=== PATIENT | male | born 1960 | race Caucasian/White ===

== ENCOUNTER 2017-04-12 09:26 | Inpatient (IN) ==
--- NOTE | 2017-04-12 09:52 | Anesthesia Evaluation PreOp ---
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: CVA (residual left sided weakness) Other Medical History: Hepatic (fatty liver), Bleeding (thrombocytopenia), Diabetes Type II, GERD Anesthesia History: No Prior Anesthetic Complications, Past Anesthesia Alcohol Use: none Drug use: none Medications and Allergies Gabapentin [Neurontin] 300 mg PO Q6H PRN 10/08/15 [History] Hydrochlorothiazide 25 mg PO DAILY 10/08/15 [History] Lisinopril [Zestril] 10 mg PO DAILY 10/08/15 [History] Nadolol [Corgard] 20 mg PO DAILY 10/08/15 [History] Pantoprazole Sodium [Protonix] 40 mg PO DAILY 10/08/15 [History] Ascorbic Acid [Vitamin C] 500 mg PO DAILY 04/06/17 [History] Escitalopram [Lexapro] 10 mg PO DAILY 04/06/17 [History] GlipiZIDE [Glipizide ER] 10 mg PO 04/06/17 [History] Magnesium Chloride [Mag Delay] 64 mg PO BID 04/06/17 [History] Magnesium Hydroxide [Milk of Magnesia] 400 mg PO QID 04/06/17 [History] Multivitamin [Multivitamins] 1 each PO DAILY 04/06/17 [History] Potassium Chloride [K-Tab ER] 20 meq PO DAILY 04/06/17 [History] Spironolactone [Aldactone] 25 mg PO BID 04/06/17 [History] Allergies No Known Allergies Allergy (Verified 09/06/15 10:50) - Meds/Allergy Pre-op Review Medications Reviewed: Yes Allergies Reviewed: Yes Beta Blockers on Current Med List: Yes If Beta Blockers taken, Date/Time (Last Dose taken): 04/11/2017 at 0900 Anesthesia Results - Labs Laboratory Tests 04/04/17 04/04/17 04/04/17 13:14 13:14 13:14 WBC 5.0 Hgb 13.7 Hct 42.7 Plt Count 62 L PT 12.4 H INR 1.1 APTT 30.5 Sodium 138 Potassium 4.1 BUN 11 Creatinine 0.78 - Imaging EKG: report reviewed (04/04/2017 SR, possible LAE, ST deviation) Additional studies: 10/27/2015 Stress LVEF>70% perfusion imaging was negative for ischemia or infarct 10/08/2015 Echo LVEF 60-65% mild LV diastolic dysfunction mild MR Anesthesia Exam O2 Sat Height 1.74 m Height 1.74 m Weight 108.409 kg Weight 108.409 kg O2 Sat by Pulse Oximetry 96 Vital Signs Temp Pulse Resp BP Pulse Ox 98.0 F 87 18 129/74 96 04/12/17 09:47 04/12/17 09:47 04/12/17 09:47 04/12/17 09:47 04/12/17 09:47 Height: 5'8.5" Weight: 239 lbs NPO (# of Hours): 8 Pain Scale: 0 Pain Scale Used: Numeric (1 - 10) - HEENT Pupil (Motor): EOMI Mallampati: II Teeth: Edentulous Oral Opening: Greater than 3 - MILL WASHER LOC: Oriented MILL WASHER Motor: Normal RLE, Normal LLE, Normal Face, Deficit RUE, Deficit LUE MILL WASHER Sensory: Normal: RUE, LUE, RLE, LLE, Face - Cardiac Rhythm: Regular Murmur: None - Pulmonary Breath Sounds: bilateral Clear Respiratory Effort: Symmetrical Anesthesia Assess/Plan ASA Score: 3 Modified Joshua Scale for Level of Consciousness: Cooperative, oriented, and tranquil Anesthetic Plan: General Monitoring Plan: Standard Monitors, A-Line Recovery Plan: PACU
[2017-04-12] MEDS ORDERED: CeFAZolin Pre 2,000 MG/100 ML 2,000 MG/100 ML BAG IVPB ONE (09:54)
[2017-04-12] MEDS ORDERED: Lidocaine -MPF 1% 2 ML VIAL ID ONE (09:54)
[2017-04-12] MEDS ORDERED: Ringers Solution, Lactated 1,000 ML IVC SCH (10:00)
[2017-04-12] MEDS: Albuterol 2.5 MG/3 ML NEBULIZER IH ONE ×2 (10:16→19:30)
[2017-04-12 10:45] LABS: Hemoglobin A1C 8.7 %
--- NOTE | 2017-04-12 11:42 | History & Physical Report ---
Date of Encounter: 04/12/17 Time of Encounter: 11:42 24 Hour HP Update - Instructions Instructions: If the History and Physical is less than 30 days old and was completed prior to A.M. admission and or procedure and has NOT been updated on calendar day of procedure please complete this update prior to performing procedure. - Update Patient reports changes in Medical Condition: No Changes in examination, assessment, or condition: No Changes in Medication: No Preop tests/diagnostics Reviewed: Yes Surgery Remains Indicated: Yes Consent for Planned Operative Procedure(s) Verified: Yes - Pre-Operative Checklist Preoperative Checklist Indicated: Yes Prophylactic Antibiotic Ordered: Yes Home Medications Include Beta Topher: Yes Beta Topher Taken Today (Day of Surgery): Yes Beta Topher Taken Yesterday (Day Prior to Surgery): Yes Is VTE Prophylaxis Indicated?: Yes
[2017-04-12] MEDS ORDERED: Heparin 1,000 UNITS/500 mL NS 500 ML ONE ×3 (11:49→12:42)
[2017-04-12] MEDS ORDERED: Lidocaine 1% 20 ML MDV ONE (12:42)
[2017-04-12] MEDS ORDERED: EPHEDrine 50 MG/ML VIAL ONE (12:46)
--- NOTE | 2017-04-12 12:58 | Anesthesia Procedures ---
Date of Encounter: 04/12/17 Time of Encounter: 12:13 Procedures: Anesthesia - Arterial Line Consent obtained: written consent Time out performed: Yes Sedation: Versed (mg): 2 Local Anesthetic: Lidocaine 1% Amount of Anesthetic used (mls): 2 Size (Gauge): 20 Length (inches): 1 3/4 Technique Used: sterile prep, direct puncture technique Post-Procedure: line taped into place, dry sterile dressing placed Patient tolerated procedure: well, no complications Complications: none Site: Radial L Vitals: vss though out. Comments: attempted right side, but would not thread easy.
[2017-04-12] MEDS ORDERED: Ondansetron 4 MG/2 ML VIAL IVP ONE (14:04)
[2017-04-12] MEDS ORDERED: *HR* Labetalol 20 MG/4 ML SYRINGE IVP PRN (14:04)
[2017-04-12] MEDS ORDERED: *HR* Morphine 2 MG/ML SYRINGE IVP PRN ×3 (14:04→17:11)
[2017-04-12] MEDS ORDERED: *HR* FentaNYL (PF) 100 MCG/2 ML VIAL ONE (14:32)
--- NOTE | 2017-04-12 15:37 | Operative Note ---
Date of procedure: 04/12/17 Pre-op diagnosis: left carotid stenosis and cva Post-op diagnosis: same Procedure: left carotid endarterectomy with 8 FR shunt and patch angioplasty Complications: none Anesthesia: GETA Surgeon: Ronnell Rahman Estimated blood loss (cc): 150 Specimen: none Condition: stable Disposition: PACU Procedure in Detail: History Ankush Hein is a 56-year-old white male with a history of stroke 30 has multiple vascular risk factors in particular hypertension and diabetes. Duplex scan did reveal a high-grade lesion of his left carotid artery. Angiography confirmed this lesion and demonstrated not only an internal carotid artery stenosis that was greater than 95% stenotic but also an ulcerated and long stenotic lesion in the distal aspect of the common carotid artery. This appeared to be a typical embolic ulcer and the patient needed treatment for both of these lesions. Procedure After informed consent was obtained the patient was taken to the operating room. Arterial line was placed. General endotracheal anesthesia was established. The left neck was then sterilely prepped and draped. An oblique incision was made on the Anterior border of sternocleidomastoid muscle. Dissection was carried down to the carotid sheath which was then opened. The nervous structures were identified and preserved. Controls obtained of the carotid vessels. A particular amount of attention was paid to the very proximal aspect of the carotid artery in the neck as the arteriotomy would need to be extended approximately 2 remove the atheroembolic stenosis in ulcerated areas. After this was achieved patient was given 5000 units heparin. After 3 minutes later the vessels were clamped with the internal carotid artery clamped first. An 11 blade knife and Infatne scissors were used to open the vessel. An 8 English was then inserted atraumatically and patency the shunt was confirmed by the use of intraoperative Doppler. Evaluation of the plaque revealed a very thick dense plaque in the common carotid artery with 2 distinct areas of ulceration. This corresponded to the angiographic findings. In the proximal internal carotid artery there was a very diffuse and heterogeneous disease with significant amount of loose material within the wall plaque. There are no findings of thrombus within the lumen. The endarterectomy was begun at the distal aspect of the common carotid artery. The dissection was carried proximally and distally. This parathyroid and external carotid artery were endarterectomized as well as the internal. The endpoint on the internal was smooth and no tacking sutures were necessary. On the proximal aspect of the plaque was divided proximal to the more proximal ulcerated area. The bed of the vessels then inspected for any residual debris. A patch angioplasty was performed. This was sewn in position using 2 6-0 Prolene sutures. Leaving a small space open on the suture line the shunt was clamped divided and removed. The final few sutures were placed. The internal was allowed to backbleed and then was reclamped. The external and common were opened and finally the internal was reopened. There is no hip no hemodynamic distress with this maneuver. Excellent Doppler signals were identified throughout the carotid system. A superficial cervical block using half percent Marcaine was performed. The wound was copiously irrigated with antibiotics. Hemostasis was achieved. The wound was closed in layers using absorbable suture. No drains were placed. The patient was extubated in the operating room and found to be neurologically intact. He was taken from the operating room to the recovery room in stable condition.
[2017-04-12] MEDS: *HR* Metoprolol 5 MG/5 ML VIAL IVP PRN ×2 (16:10→16:20)
[2017-04-12] MEDS ORDERED: *HR* Metoprolol 5 MG/5 ML VIAL IVP ONE (16:11)
--- NOTE | 2017-04-12 16:31 | Anesthesia Evaluation Post Op ---
Date of Encounter: 04/12/17 Time of Encounter: 16:30 - Vital Signs Vital Signs: Vital Signs/O2 Sat, Most Current Temp Pulse Resp BP Pulse Ox 97.1 F L 89 16 132/74 96 04/12/17 16:17 04/12/17 16:17 04/12/17 16:17 04/12/17 16:17 04/12/17 16:17 - Lungs Lungs: Clear Ascult./Percussion - Airway Airway: Non-obstructed - Cardiovascular Regular Rate - Mental Status Mental Status: Alert & Oriented, Answers Appropriately - Pain Pain Scale: 0 Pain Scale used: Numeric (1 - 10) - Nausea Vomiting Nausea Vomiting: Not Present - Hydration Hydration: Ice chips, Hamilton catheter - Discharge PostOp Status: Transfer Patient to floor
[2017-04-12] MEDS ORDERED: Ondansetron 4 MG/2 ML VIAL IVP PRN (17:11)
[2017-04-12] MEDS ORDERED: Acetaminophen 325 MG TABLET PO PRN (17:11)
[2017-04-12] MEDS ORDERED: Naloxone 0.4 MG/ML INJ IVP PRN (17:11)
[2017-04-12] MEDS: Gabapentin 300 MG CAPSULE PO SCH ×2 (17:41→20:59)
[2017-04-12] MEDS: *HR* HYDROcodone/Acet 5/325 mg TABLET PO PRN (17:41)
[2017-04-12] MEDS: ceFAZolin 2,000 MG in D5% in Water 100 ML IVPB SCH (19:51)
[2017-04-12] MEDS: *HR* Metformin 500 MG TABLET PO SCH (20:59)
[2017-04-12] MEDS: MOM Conc 10 ML UD.LIQ PO SCH (20:59)
[2017-04-13] MEDS: *HR* HYDROcodone/Acet 5/325 mg TABLET PO PRN ×2 (04:21→09:56)
[2017-04-13] MEDS: ceFAZolin 2,000 MG in D5% in Water 100 ML IVPB SCH ×2 (04:26→11:54)
[2017-04-13 04:28] LABS: Basophils % 0.2 %; Eosinophils % 0.4 %; Immature Granulocytes % 0.4 % (0-4); Lymphocytes % 14.9 %
[2017-04-13 04:30] LABS: Hematocrit 37.4 % (37.5-50.1); Hemoglobin 12.1 g/dL (12.9-16.9); Immature Platelets 11.5 % (1.1-6.1); Lymphocytes # 0.9 K/mcL (0.6-4.6); Mean Corpuscular HGB Conc 32.4 g/dL (31.6-35.5); Mean Corpuscular Hemoglobin 29.2 pg (28.0-33.3); Mean Corpuscular Volume 90.1 fL (83.0-100.0); Mean Platelet Volume 12.4 fL (9.4-12.4); Monocytes # 0.5 K/mcL (0.0-1.3); Monocytes % 7.9 %; Red Blood Count 4.15 M/mcL (4.19-5.50); Red Cell Distribution Width 14.1 % (11.5-14.5); Segmented Neutrophils % 76.2 %
[2017-04-13 04:31] LABS: Neutrophils # 4.3 K/mcL (1.6-8.9); Platelet Count 63 K/mcL (140-400)
[2017-04-13 04:40] LABS: BUN/Creatinine Ratio 16 (6-26); Blood Urea Nitrogen 12 mg/dL (8-26); Calcium 8.5 mg/dL (8.6-10.8); Carbon Dioxide 27 mEq/L (19-29); Chloride 103 mEq/L (98-109); Glucose 213 mg/dL (70-99); Osmolality,Calculated 284 (280-300); Potassium 4.9 mEq/L (3.5-4.5); Sodium 134 mEq/L (136-145); eGFR For African Americans > 60 (> 60); eGFR For Non-African Americans > 60 (> 60)
[2017-04-13] MEDS: *HR* Metformin 500 MG TABLET PO SCH (07:41)
[2017-04-13] MEDS: Gabapentin 300 MG CAPSULE PO SCH ×2 (07:41→11:54)
[2017-04-13] MEDS: MOM Conc 10 ML UD.LIQ PO SCH (07:42)
[2017-04-13] MEDS ORDERED: Ascorbic Acid 500 MG TABLET PO SCH (09:00)
[2017-04-13] MEDS ORDERED: MAGNESIUM CHLORIDE 64 MG PO SCH (09:00)
[2017-04-13] MEDS ORDERED: hydroCHLOROthiazide 25 MG TABLET PO SCH (09:00)
[2017-04-13] MEDS ORDERED: Multivit/Ca/Min/Fe/FA 1 TAB TABLET PO SCH (09:00)
[2017-04-13] MEDS ORDERED: *HR* GlipiZIDE XL (24 HR) 10 MG TABLET PO SCH (09:00)
[2017-04-13 11:40] VITALS: BP 129/77
--- NOTE | 2017-04-13 14:22 | Discharge Summary ---
Date of Encounter: 04/13/17 Time of Encounter: 14:19 - Discharge Diagnosis (1) Carotid artery disease Priority: Primary Status: Acute Comments: 56-year-old white male with symptomatic carotid disease. Patient has abnormal duplex scan. He had a carotid artery angiogram which showed a high-grade lesion of greater than 95% and an ulcerated lesion with stenosis in the distal left common carotid artery. Patient was admitted for left carotid endarterectomy. Qualifiers: Laterality: left Qualified Code(s): I77.9 - Disorder of arteries and arterioles, unspecified (2) Diabetes mellitus Priority: Secondary Status: Chronic Comments: Patient has chronic diabetes which is under medical management. Qualifiers: Diabetes mellitus type: type 2 Diabetes mellitus complication status: with circulatory complication Diabetes mellitus complication detail: with peripheral angiopathy without gangrene Diabetes mellitus alf insulin use : with alf use Qualified Code(s): E11.51 - Type 2 diabetes mellitus with diabetic peripheral angiopathy without gangrene; Z79.4 - [facility] (current ) use of insulin (3) Hypertension Priority: Secondary Status: Chronic Comments: Patient has chronic hypertension under medical management Qualifiers: Hypertension type: essential hypertension Qualified Code(s): I10 - Essential (primary) hypertension (4) Hyperlipidemia Priority: Secondary Status: Chronic Comments: Patient has chronic hyper cholesterolemia under medical management Qualifiers: Hyperlipidemia type: unspecified Qualified Code(s): E78.5 - Hyperlipidemia , unspecified - Discharge Medications Prescriptions: HYDROcodone/Acet 5/325 mg [Bellwood 5-325 mg] 1 tab PO Q6HR PRN #10 tablet PRN Reason: Moderate Pain Home Medications: Gabapentin [Neurontin] 300 mg PO QID 10/08/15 [History] Hydrochlorothiazide 25 mg PO DAILY 10/08/15 [History] Lisinopril [Zestril] 10 mg PO DAILY 10/08/15 [History] Nadolol [Corgard] 20 mg PO DAILY 10/08/15 [History] Pantoprazole Sodium [Protonix] 40 mg PO DAILY 10/08/15 [History] Ascorbic Acid [Vitamin C] 500 mg PO DAILY 04/06/17 [History] Escitalopram [Lexapro] 10 mg PO DAILY 04/06/17 [History] Magnesium Chloride [Mag Delay] 64 mg PO DAILY 04/06/17 [History] Multivitamin [Multivitamins] 1 each PO DAILY 04/06/17 [History] Potassium Chloride [K-Tab ER] 20 meq PO DAILY 04/06/17 [History] Spironolactone [Aldactone] 25 mg PO BID 04/06/17 [History] Magnesium Hydroxide [Milk of Magnesia] 5 ml PO BID 04/12/17 [History] Metformin HCl [Glucophage] 1,000 mg PO BID 04/12/17 [History] glipiZIDE [Glipizide] 10 mg PO DAILY 04/12/17 [History] HYDROcodone/Acet 5/325 mg [Bellwood 5-325 mg] 1 tab PO Q6HR PRN #10 tablet [Rx] Allergies/Adverse Reactions: Allergies No Known Allergies Allergy (Verified 09/06/15 10:50) Date of admission: 04/12/17 17:10 Primary care physician: Jennifer Gregory Consults: None Procedure(s) Performed: Left carotid endarterectomy with patch angioplasty Discharging clinician: Ronnell Rahman Anticipated date of discharge: 04/13/17 - Patient Status Disposition: Home, Self-Care Condition: Good Functional capacity at discharge: independent ambulation Overall status at discharge: patient is progressing back to baseline - Discharge Instructions Follow Up With: Andreia Plaza CNP [Advanced Practice Nurse] - 04/18/17 10:00 am Ronnell Rahman MD [Partnered Physician] - 05/02/17 1:30 pm Additional Instructions: Patient is to keep her left neck incision dry for a total of 5 days following surgery. Patient is to use ice pack over left neck over this weekend. Patient is not to drive and vehicle. Patient is not to lift greater than 10 pounds. Patient is not to perform manual labor. Patient may ambulate inside and outside and on the stairway's as tolerated. Patient is to resume usual home medications. A prescription for Bellwood will be given to the patient upon discharge. - Diet and Activity Activity: increase activity as tolerated Diet: diabetic diet - Hospital Course Hospital course: Mr. Hein is a 56 year old male With symptomatic carotid artery disease. He has multiple risk factors for vascular disease. He was admitted for a left carotid endarterectomy. This was performed under general endotracheal anesthesia. The patient had no periprocedural complications. Postoperatively he was doing well. He was able to ambulate. He was hemodynamically stable. He was felt fit for discharge on the afternoon of postoperative day #1. His diet and exercise medications and wound care were reviewed with the patient prior to discharge. - Time Spent with Patient Total time spent providing and/or coordinating discharge services: Exam Vital Signs, Last 4 Hours Temp Pulse Resp BP Pulse Ox 04/13/17 11:37 97.6 F 81 18 129/77 95 04/13/17 11:04 73 General: Present: Conversant, No Apparent Distress, Well developed, Well nourished HEENT: Present: Atraumatic, Normocephaly, Trachea midline Neck: Absent: JVD Neuro: Present: Alert and responsive, No focal deficits noted, Cranial nerves grossly intact, Motor nerves grossly intact, Sensory nerves grossly intact Abdomen: Present: Soft Vascular: Present: Normal capillary refill Skin: Present: No rashes noted on visualized skin - VTE Documentation of Mechanical Device: Intermittent pneumatic compression device
== END 2017-04-13 16:07 | disposition home or self-care (01) | DRG 39 ==
LOC: SAMDAY 09:26 → 2NNU 17:10
PROVIDERS: ADMIT Surgery Vascular Surgery; ATTEND Surgery Vascular Surgery

== ENCOUNTER 2018-09-14 03:29 | Inpatient (IN) ==
[2018-09-14] MEDS ORDERED: Naloxone 0.4 MG/ML INJ IVP PRN (08:45)
[2018-09-14] MEDS ORDERED: *HR* OxyCODONE Immed Rel 5 MG TABLET PO PRN (08:45)
[2018-09-14] MEDS ORDERED: *HR* HYDROcodone/Acet 5/325 mg TABLET PO PRN (08:45)
[2018-09-14] MEDS ORDERED: Acetaminophen 325 MG TABLET PO PRN (08:45)
--- NOTE | 2018-09-14 08:54 | Internal Med History&Physical ---
Date of Encounter: 09/14/18 Time of Encounter: 08:52 Internal Medicine - H&P: HPI Chief complaint: I have been spittin up blood Admitted From: Hospital to Hospital Transfer Plans for Post Hospital Care: Home History of present illness: Mr. Hein is a 58 year old male with medical history of carotid artery disease, tobacco abuse, hyperlipidemia, hypertension, liver cirrhosis with history of esophageal varices status post banding, chronic thrombocytopenia, presented to outside facility with complaints of cough productive of sputum with blood streaks. Patient reports that he has been coughing for several months however in the past hours prior to arrival he has been coughing up more blood with phlegm. He has not had any since arrival here at [facility], but he reports he had about a teaspoon per event at home. No blood clots, and he describes the blood as mixed with phlegm. He denies fever or chills, he reports generalized malaise. He denies any vomiting or nausea. He states categorically that he is not vomiting blood. He has no diaphoresis, recent sick contacts, unintentional weight loss, recent incarceration, recent travel. he has pleuritic chest pain and abdominal pain with cough He denies rhinorrhea, he also reports a sore throat since onset of his symptoms. He denies myalgias, he denies any urinary symptoms, he denies any neurologic symptoms. He has no leg swelling. He is a chronic tobacco user, he denies illicit drug use. He is allergic to lisinopril and penicillins Results from outside facility Urinalysis: No evidence of infection Liver function tests: Within normal limits CRP: 2.13 INR: 1.2 Lactate: 2.1 to Troponin: 0.03 White blood cell 5.8 Hemoglobin: 11.7 Platelet count: 67 Sodium: 128, chloride: 96, serum bicarbonate: 27, BUN/creatinine within normal limits EKG shows sinus tachycardia with ventricular rate of [address] interpreted as tree-in-bud appearance suspicious for inflammatory versus infectious processes, no pulmonary embolism. At time of review, he is hemodynamically stable and in no form of resp distress We will place him on observation for PNA and hemoptysis. Past Med Surg Social Fam HX - Past Medical History Medical history: arthritis, CVA, DVT, diabetes, GERD, hyperlipidemia, hypertension, liver disease, TIA Additional medical history: CAROTID STENOSIS. SLEEP APNEA Psychiatric history: anxiety - Past Surgical History Surgical History: appendectomy, cholecystectomy Additional surgical history: heart cath. BILAT HIP - Social History Smoking Status: Former smoker Smokeless Tobacco Status: No Alcohol use: none Drug use: none - Family History Sister Hx Family Cardiac Disorders: Yes (CHF) Paternal Grandfather Living Status: Hx Family Cancer: Yes (lung) Father Living Status: Cause of : stroke Hx Family Neurologic Disorders: Yes (stroke) Mother Living Status: Cause of : [place] Hx Family Cardiac Disorders: Yes ([place]) Internal Medicine - H&P: Meds Gabapentin [Neurontin] 300 mg PO QID 10/08/15 [History] Hydrochlorothiazide 25 mg PO DAILY 10/08/15 [History] Nadolol [Corgard] 20 mg PO DAILY 10/08/15 [History] Pantoprazole Sodium [Protonix] 40 mg PO DAILY 10/08/15 [History] Magnesium Chloride [Mag Delay] 64 mg PO DAILY 04/06/17 [History] Multivitamin [Multivitamins] 1 each PO DAILY 04/06/17 [History] Potassium Chloride [K-Tab ER] 20 meq PO DAILY 04/06/17 [History] Spironolactone [Aldactone] 25 mg PO BID 04/06/17 [History] Metformin HCl [Glucophage] 1,000 mg PO BID 04/12/17 [History] glipiZIDE [Glipizide] 10 mg PO DAILY 04/12/17 [History] Aspirin [Lo-Dose Aspirin EC] 81 mg PO DAILY 11/04/17 [History] Canagliflozin [Invokana] 100 mg PO DAILY 11/04/17 [History] Pioglitazone [Actos] 15 mg PO 0800 11/04/17 [History] Venlafaxine HCl [Venlafaxine HCl ER] 150 mg PO DAILY 11/04/17 [History] hydrOXYzine HCl [Hydroxyzine HCl] 25 mg PO HS 11/04/17 [History] hydroCHLOROthiazide [Hydrochlorothiazide] 25 mg PO DAILY 11/04/17 [History] Allergy/AdvReac Type Severity Reaction Status Date / Time Penicillins Allergy Hives Verified 11/16/17 17:12 All Systems PM: A 10-system review of systems was performed and is negative for pertinent findings except as documented above in the HPI. - Constitutional Constitutional: as per HPI - EENT Eyes: as per HPI Ears: as per HPI Nose, mouth and throat: as per HPI - Cardiovascular Cardiovascular ROS IM: as per HPI - Respiratory Respiratory: as per HPI - Gastrointestinal Gastrointestinal: as per HPI - Musculoskeletal Musculoskeletal ROS IM: as per HPI - Integumentary Integumentary IM: as per HPI - Neurological Neurological ROS: as per HPI - Hematologic/Lymphatic Hematologic/Lymphatic: as per HPI - Constitutional Vitals: Temp Pulse Resp BP Pulse Ox 98.2 F 85 16 130/82 99 09/14/18 07:58 09/14/18 07:58 09/14/18 07:58 09/14/18 07:58 09/14/18 07:58 General appearance: Present: A&O X 3, pleasant, no acute distress Exam: see below - Head Head exam: Present: atraumatic, normocephalic - Eye Eye exam: Present: PERRL, conjuntiva pink, sclera anicteric Pupils: Present: PERRL - Neck Neck exam general surgery: Present: supple, trachea midline. Absent: lymphadenopathy Additional comments: Hyperemic pharynx, no tonsilar enlargements of exudates - Respiratory Respiratory exam: Present: decreased breath sounds (diminished air entry bilaterally). Absent: accessory muscle use, rales, rhonchi, wheezes - Cardiovascular Cardiovascular exam: Present: RRR, +S1, +S2. Absent: diastolic murmur, gallop, rubs, systolic murmur - GI/Abdominal GI/Abdominal exam: Present: normal bowel sounds, soft, no peritoneal signs. Absent: distended, tenderness - Extremities Exam Extremities exam: Present: warm, radial pulses palpable and symmetrical. Absent: calf tenderness, cyanotic, pedal edema - Neurological Exam Neurological exam: Present: alert, CN II-XII intact, oriented X3, no focal deficits. Absent: pronater drift, facial droop, speech deficit - Skin Skin exam: Present: dry, intact - Assessment and plan (1) Pneumonia Current Visit: Yes Status: Acute Assessment and plan: Patient wit coughm subjective fevers CXR and Chest CT from outside facility noted for pNA, no PE Received Levaquin at 0400 from outside facility this a.m Continue with levaquin 750 mg IV daily No recent hospitalization, no risk for mRSA or Pseudomonas Send Sputum culture, blood culture, Legionella and streptococcal antigen Continue oxygen support as needed Follow final cultures Qualifiers: Pneumonia type: due to unspecified organism Laterality: unspecified laterality Lung location: unspecified part of lung Qualified Code(s): J18.9 - Pneumonia, unspecified organism (2) Hemoptysis Current Visit: Yes Status: Acute Assessment and plan: Likely due to pneumonia High-risk patient due to history of thrombocytopenia Currently no airway compromise, patient is not in distress Consulted pulmonology, Dr. Bishop will be evaluating the patient Type and screen, repeat CBC stat Hold home dose of aspirin until stable (3) Cirrhosis Current Visit: Yes Status: Chronic Assessment and plan: No evidence of current ascites Resume home medications Qualifiers: Hepatic cirrhosis type: unspecified hepatic cirrhosis Ascites presence: without ascites Qualified Code(s): K74.60 - Unspecified cirrhosis of liver (4) Thrombocytopenia Current Visit: Yes Status: Chronic Assessment and plan: Baseline platelet count ranges from 70-90 Platelet count from outside facility 67 Follow CBC Type and screen No current indication for platelet transfusion SCDs for DVT prophylaxis (5) History of esophageal varices Current Visit: Yes Status: Chronic Assessment and plan: Denies vomiting or hematemesis Continue nadolol, continue PPI, continue to monitor (6) Carotid artery disease Current Visit: Yes Status: Chronic Assessment and plan: Continue home medications except aspirin Qualifiers: Carotid artery disease type: unspecified Laterality: unspecified laterality Qualified Code(s): I77.9 - Disorder of arteries and arterioles, unspecified (7) Diabetes mellitus Current Visit: Yes Status: Chronic Assessment and plan: Basal, sliding scale and nutrition and insulin ADA diet Fingerstick before meals at bedtime Qualifiers: Diabetes mellitus type: type 2 Diabetes mellitus group home insulin use: wit hout group home use Diabetes mellitus complication status: without complication Qualified Code(s): E11.9 - Type 2 diabetes mellitus without complications (8) Hyperlipidemia Current Visit: Yes Status: Chronic Assessment and plan: Continue home medications Qualifiers: Hyperlipidemia type: unspecified Qualified Code(s): E78.5 - Hyperlipidemia, unspecified (9) Hypertension Current Visit: Yes Status: Chronic Assessment and plan: Continue home medications Qualifiers: Hypertension type: essential hypertension Qualified Code(s): I10 - Essential (primary) hypertension (10) INDY (obstructive sleep apnea) Current Visit: Yes Status: Chronic Assessment and plan: CPAP at bedtime (11) Tobacco abuse Current Visit: Yes Status: Chronic Assessment and plan: encourage cessation - Time Spent With Patient Total time spent is greater than 50% in coordination of care (as documented) at patient's floor/unit and/or counseling patient:
[2018-09-14] MEDS ORDERED: *HR* Dextrose 50 % in Water (Syg) 50 ML SYRINGE IVP PRN (08:57)
[2018-09-14] MEDS ORDERED: D5% in Water 1,000 ML IVC PRN (08:57)
[2018-09-14] MEDS ORDERED: Dextrose Gel 15 GM/37.5 ML TUBE PO PRN ×2 (08:57)
--- NOTE | 2018-09-14 09:44 | Pulmonology Consult Note ---
Date of Encounter: 09/14/18 Time of Encounter: 08:55 Assessment and Plan (1) Hemoptysis Current Visit: Yes Status: Acute Patient describes mild hemoptysis which has resolved and this is most likely related to possibly community-acquired pneumonia/COPD exacerbation and I was not able to review images from outside hospital, however report stated there is no evidence of pulmonary embolism and some changes suggestive of infectious/inflammatory changes. I have explained to patient he may need bronchoscopy if he still have hemoptysis and she understand that. Patient also has thrombocytopenia which is a contributing factor and he has underlying liver disease. Treating his pneumonia and COPD exacerbation is recommended. Discussed with primary team and thank you for consultation. (2) COPD exacerbation Current Visit: Yes Status: Suspected We will have patient on systemic steroid and bronchodilators. If there will be significant abnormalities in his blood sugar then systemic steroids can be tapered quickly. (3) Pneumonia Current Visit: Yes Status: Acute I suspect this is the cause for his hemoptysis and patient is being treated appropriately with broad-spectrum antibiotic. Again if no improvement then we will plan for bronchoscopy. Qualifiers: Pneumonia type: due to unspecified organism Laterality: unspecified laterality Lung location: unspecified part of lung Qualified Code(s): J18.9 - Pneumonia, unspecified organism (4) Tobacco abuse Current Visit: Yes Status: Chronic Advised patient to quit smoking (5) Tobacco abuse counseling Current Visit: Yes Status: Chronic History of Present Illness Consult date: 09/14/18 Requesting physician: Bereket Mane Reason for consult: other (Hemoptysis) Chief complaint: Hemoptysis History of present illness: This is a 58-year-old male with significant smoking history who presented from outside hospital with hemoptysis and he described it as about a teaspoon fresh blood which happened when he was coughing and since he did not have any more blood. He denies any nosebleed, however he has history of esophageal varices and he is clearly saying he is not vomiting but coughing and CT chest was reported to have tree-in-bud appearance. Patient stated he quit smoking when he started coughing and he denies any previous hemoptysis. He has been treated for COPD and he stated he was on Advair but he is not on home oxygen. Patient denies any fever or chills and he does not have any sick contact and denies any previous history of TB. Patient stated typically he bleed easily and he has thrombocytopenia. Again at this time he denies any other symptoms such as wheezing. He has some sputum which was mixed with blood. Past Med Surg Social Fam HX - Past Medical History Medical history: arthritis, CVA, DVT, diabetes, GERD, hyperlipidemia, hypertension, liver disease, TIA Additional medical history: CAROTID STENOSIS. SLEEP APNEA Psychiatric history: anxiety - Past Surgical History Surgical History: appendectomy, cholecystectomy Additional surgical history: heart cath. BILAT HIP - Social History Smoking Status: Former smoker Smokeless Tobacco Status: No Alcohol use: none Drug use: none - Family History Sister Hx Family Cardiac Disorders: Yes (CHF) Paternal Grandfather Living Status: Hx Family Cancer: Yes (lung) Father Living Status: Cause of : stroke Hx Family Neurologic Disorders: Yes (stroke) Mother Living Status: Cause of : SD Hx Family Cardiac Disorders: Yes (SD) Medications and Allergies Pantoprazole Sodium [Protonix] 40 mg PO DAILY 10/08/15 [History] Magnesium Chloride [Mag Delay] 64 mg PO DAILY 04/06/17 [History] Multivitamin [Multivitamins] 1 each PO DAILY 04/06/17 [History] Potassium Chloride [K-Tab ER] 20 meq PO DAILY 04/06/17 [History] Spironolactone [Aldactone] 25 mg PO BID 04/06/17 [History] Metformin HCl [Glucophage] 1,000 mg PO BID 04/12/17 [History] glipiZIDE [Glipizide] 10 mg PO DAILY 04/12/17 [History] Aspirin [Lo-Dose Aspirin EC] 81 mg PO DAILY 11/04/17 [History] Canagliflozin [Invokana] 100 mg PO DAILY 11/04/17 [History] Pioglitazone [Actos] 15 mg PO 0800 11/04/17 [History] Venlafaxine HCl [Venlafaxine HCl ER] 150 mg PO DAILY 11/04/17 [History] hydrOXYzine HCl [Hydroxyzine HCl] 25 mg PO HS 11/04/17 [History] hydroCHLOROthiazide [Hydrochlorothiazide] 25 mg PO DAILY 11/04/17 [History] BuPROPion SR (12 HR) [Wellbutrin SR] 150 mg PO BID 09/14/18 [History] Escitalopram [Lexapro] 10 mg PO DAILY 09/14/18 [History] Furosemide [Lasix] 20 mg PO DAILY 09/14/18 [History] Gabapentin [Neurontin] 300 mg PO TID 09/14/18 [History] Allergy/AdvReac Type Severity Reaction Status Date / Time Penicillins Allergy Hives Verified 11/16/17 17:12 All Systems: The remainder of the systems were reviewed and are negative Physical Examination Vital Signs: Vital Signs, Last 4 Hours Temp Pulse Resp BP Pulse Ox 09/14/18 07:58 98.2 F 85 16 130/82 99 09/14/18 07:44 98.0 F 87 16 125/76 98 General: Patient is in no acute distress. HEENT: Normocephalic atraumatic, pupils are equal round and reactive to light and accommodation, anicteric sclera, nares is patent, mucous membranes moist, no JVD, trachea is midline Cardiovascular: Normal sinus rhythm, S1 and S2 audible, no murmur or rubs Respiratory: Scattered rhonchi to auscultation bilaterally. No acute distress. No wheezing. Patient not using accessory muscles. Abdomen: Soft, nontender, nondistended, positive bowel sounds in all 4 quadrants Extremities: Warm, dry, trace lower extremity edema. Normal capillary refill. Neuro: Alert and oriented and follows commands. Grossly no neuro deficits. Skin: Warm to touch : No obvious abnormalities. Psych: Normal Consult Discharge Plan - Plan Referrals: Andreia Plaza SENIOR INFORMATION SECURITY ENGINEER [Primary Care Provider] -
[2018-09-14 10:03] LABS: Basophils % 0.2 %; Eosinophils # 0.2 K/mcL (0.0-0.6); Eosinophils % 4.5 %; Hematocrit 35.6 % (37.5-50.1); Hemoglobin 10.9 g/dL (12.9-16.9); Immature Granulocytes % 0.6 % (0-4); Immature Platelets 8.4 % (1.1-6.1); Lymphocytes # 1.1 K/mcL (0.6-4.6); Lymphocytes % 22.2 %; Mean Corpuscular HGB Conc 30.6 g/dL (31.6-35.5); Mean Corpuscular Hemoglobin 24.7 pg (28.0-33.3); Mean Corpuscular Volume 80.7 fL (83.0-100.0); Monocytes # 0.7 K/mcL (0.0-1.3); Monocytes % 15.1 %; Neutrophils # 2.8 K/mcL (1.6-8.9); Red Blood Count 4.41 M/mcL (4.19-5.50); Red Cell Distribution Width 18.1 % (11.5-14.5); Segmented Neutrophils % 57.4 %
[2018-09-14] MEDS: Venlafaxine XR (24 HR) 150 MG CAP.ER.24H PO SCH (10:06)
[2018-09-14] MEDS: Gabapentin 300 MG CAPSULE PO SCH ×4 (10:07→21:33)
[2018-09-14] MEDS: hydroCHLOROthiazide 25 MG TABLET PO SCH (10:07)
[2018-09-14] MEDS: Spironolactone 25 MG TABLET PO SCH ×2 (10:07→21:34)
[2018-09-14] MEDS: Magnesium Oxide 400 MG TABLET PO SCH (10:07)
[2018-09-14] MEDS: Ipratropium/Albuterol Neb 3 ML IH SCH ×3 (10:17→22:49)
[2018-09-14] MEDS: Budesonide/Formoterol 160/4.5 1 PUFF INH IH SCH ×2 (10:19→22:49)
[2018-09-14 10:29] LABS: Platelet Count 58 K/mcL (140-400)
[2018-09-14] MEDS: Insulin LISPRO 300 UNITS/3 ML VIAL SQ SCH ×2 (12:32→17:44)
[2018-09-14] MEDS ORDERED: Menthol 9.1 MG LOZENGE PO PRN (13:40)
[2018-09-14] MEDS: MethylPREDNISolone 40 MG/ML VIAL IVP SCH (17:43)
[2018-09-14] MEDS ORDERED: Insulin LISPRO 300 UNITS/3 ML VIAL SQ SCH (21:00)
[2018-09-14] MEDS: hydrOXYzine pamoate 25 MG CAPSULE PO SCH (21:34)
[2018-09-14] MEDS: Insulin DETEMIR 100 UNIT/ML X5UNITS SQ SCH (21:34)
[2018-09-15 03:45] LABS: Basophils % 0.2 %; Eosinophils % 0.2 %; Mean Corpuscular Hemoglobin 24.4 pg (28.0-33.3); Red Cell Distribution Width 17.3 % (11.5-14.5)
[2018-09-15] MEDS: Ipratropium/Albuterol Neb 3 ML IH SCH ×4 (03:45→21:38)
[2018-09-15 03:47] LABS: Hematocrit 37.4 % (37.5-50.1); Hemoglobin 11.7 g/dL (12.9-16.9); Immature Granulocytes % 0.4 % (0-4); Immature Platelets 9.5 % (1.1-6.1); Lymphocytes # 0.8 K/mcL (0.6-4.6); Lymphocytes % 17.2 %; Mean Corpuscular HGB Conc 31.3 g/dL (31.6-35.5); Mean Corpuscular Volume 77.9 fL (83.0-100.0); Mean Platelet Volume 11.3 fL (9.4-12.4); Monocytes # 0.1 K/mcL (0.0-1.3); Monocytes % 3.1 %; Neutrophils # 3.6 K/mcL (1.6-8.9); Segmented Neutrophils % 78.9 %
[2018-09-15 03:48] LABS: Platelet Count 62 K/mcL (140-400)
[2018-09-15 04:10] LABS: BUN/Creatinine Ratio 19 (6-26); Blood Urea Nitrogen 11 mg/dL (6-20); Calcium 8.8 mg/dL (8.6-10.3); Carbon Dioxide 23 mEq/L (23-29); Chloride 97 mEq/L (98-107); Glucose 324 mg/dL (70-105); Osmolality,Calculated 280 (280-300); Potassium 4.4 mEq/L (3.5-5.1); Sodium 129 mEq/L (136-145); eGFR For Non-African Americans > 60 (> 60)
[2018-09-15] MEDS: Levofloxacin 750 MG/150 ML 750 MG/150 ML BAG IVPB SCH ×2 (04:17→08:57)
[2018-09-15] MEDS: MethylPREDNISolone 40 MG/ML VIAL IVP SCH ×2 (05:10→18:46)
[2018-09-15] MEDS: Insulin LISPRO 300 UNITS/3 ML VIAL SQ SCH ×3 (08:56→18:51)
[2018-09-15] MEDS: Venlafaxine XR (24 HR) 150 MG CAP.ER.24H PO SCH (08:57)
[2018-09-15] MEDS: Magnesium Oxide 400 MG TABLET PO SCH (08:57)
[2018-09-15] MEDS: hydroCHLOROthiazide 25 MG TABLET PO SCH (08:57)
[2018-09-15] MEDS: Gabapentin 300 MG CAPSULE PO SCH ×4 (08:57→20:12)
[2018-09-15] MEDS: Spironolactone 25 MG TABLET PO SCH ×2 (08:57→20:12)
--- NOTE | 2018-09-15 09:08 | Pulmonology Progress Note ---
Date of Encounter: 09/15/18 Time of Encounter: 07:55 Assessment and Plan (1) Hemoptysis Current Visit: Yes Status: Resolved There is no more evidence of hemoptysis and has a suspected this could be multifactorial from possible community-acquired pneumonia or COPD exacerbation and thrombocytopenia and this is has resolved and no more hemoptysis. (2) COPD exacerbation Current Visit: Yes Status: Suspected Continue current treatment and discussed with primary team to try and Mucomyst nebulizer. Patient can follow-up as outpatient. Please call for any questions. (3) Pneumonia Current Visit: Yes Status: Acute Qualifiers: Pneumonia type: due to unspecified organism Laterality: unspecified laterality Lung location: unspecified part of lung Qualified Code(s): J18.9 - Pneumonia, unspecified organism (4) Tobacco abuse Current Visit: Yes Status: Chronic (5) Tobacco abuse counseling Current Visit: Yes Status: Chronic Subjective Principal diagnosis: Pneumonia and hemoptysis Interval history: Patient is feeling much better and is asking for something to make his sputum more loose so he would be able to expectorate but he has no hemoptysis. Objective PUL Vital signs: Last Vital Signs Temp 97.9 F 09/15/18 07:58 Pulse 78 09/15/18 07:58 Resp 16 09/15/18 07:58 BP 122/73 09/15/18 07:58 Pulse Ox 94 09/15/18 07:58 General: Patient is in no acute distress. HEENT: Normocephalic atraumatic, pupils are equal round and reactive to light and accommodation, anicteric sclera, nares is patent, mucous membranes moist, no JVD, trachea is midline Cardiovascular: Normal sinus rhythm, S1 and S2 audible, no murmur or rubs Respiratory: Clear to auscultation bilaterally. No acute distress. No wheezing. Patient not using accessory muscles. Abdomen: Soft, nontender, nondistended, positive bowel sounds in all 4 quadrants Extremities: Warm, dry, trace lower extremity edema. Normal capillary refill. Neuro: Alert and oriented and follows commands. Grossly no neuro deficits. Skin: Warm to touch : No obvious abnormalities. Psych: Normal Results - Laboratory Findings CBC and BMP: 09/15/18 03:23 09/15/18 03:23 Abnormal lab findings: Abnormal lab results Hgb 11.7 g/dL (12.9-16.9) L 09/15/18 03:23 Hct 37.4 % (37.5-50.1) L 09/15/18 03:23 MCV 77.9 fL (83.0-100.0) L 09/15/18 03:23 MCH 24.4 pg (28.0-33.3) L 09/15/18 03:23 MCHC 31.3 g/dL (31.6-35.5) L 09/15/18 03:23 RDW 17.3 % (11.5-14.5) H 09/15/18 03:23 Plt Count 62 K/mcL (140-400) L 09/15/18 03:23 Immature Plt Fraction 9.5 % (1.1-6.1) H 09/15/18 03:23 Sodium 129 mEq/L (136-145) L 09/15/18 03:23 Chloride 97 mEq/L (98-107) L 09/15/18 03:23 Creatinine 0.59 mg/dL (0.70-1.30) L 09/15/18 03:23 Glucose 324 mg/dL (70-105) H 09/15/18 03:23 POC Glucose 307 mg/dL (70-99) H 09/14/18 12:20 - Microbiology Findings Microbiology Findings: Microbiology, Last 48 Hours 09/14/18 11:49 Sputum Culture - Preliminary Sputum 09/14/18 12:48 Legionella Antigen - Final Urine,Clean Catch Streptococcus pneumoniae Antigen (M - Final 09/14/18 09:04 Blood Culture - Preliminary Peripheral Venipuncture Culture is incubating and being continuously monitored for growth. Final report to follow. 09/14/18 09:12 Blood Culture - Preliminary Peripheral Venipuncture Culture is incubating and being continuously monitored for growth. Final report to follow. - Clinical Findings Intake & Output: Intake & Output 09/14/18 09/15/18 09/15/18 23:59 07:59 15:59 Intake Total 220 / 220 Output Total 750 / 750 450 / 450 Balance -530 / -530 -450 / -450 Weight 107.3 kg Consult Discharge Plan - Plan Referrals: Andreia Plaza, FELT CHECKER [Primary Care Provider] - (Hospital follow up appointment has been requested. )
[2018-09-15] MEDS: Acetylcysteine 10% 2 ML INHSOL IH SCH ×3 (10:18→21:39)
[2018-09-15] MEDS: Budesonide/Formoterol 160/4.5 1 PUFF INH IH SCH ×2 (10:18→21:39)
[2018-09-15] MEDS ORDERED: Ondansetron 4 MG/2 ML VIAL IVP PRN (12:56)
--- NOTE | 2018-09-15 13:03 | Internal Med Progress Note ---
Hospitalist Progress Note - Encounter Date of Encounter: 09/16/18 Time of Encounter: 13:01 - Subjective Interval History: Presented with pneumonia and a COPD as well as hemoptysis. Hemoptysis has resolved at this time. Patient denies any shortness of breath. His only complaint is of epigastric discomfort, nausea and vomiting. He has had one episode of bilious emesis this afternoon. - Exam Vitals: Temp Pulse Resp BP Pulse Ox 97.6 F 72 17 114/64 95 09/15/18 11:57 09/15/18 11:57 09/15/18 11:57 09/15/18 11:57 09/15/18 11:57 Exam: PHYSICAL EXAMINATION: GENERAL: The patient is an elderly female who appears to be in a confused state secondary to advancing dementia. She is in no distress and is alert to self only HEENT: Head is normocephalic and atraumatic. Extraocular muscles are intact. Pupils are equal, round, and reactive to light and accommodation. NECK: Supple. No carotid bruits. No lymphadenopathy or thyromegaly. LUNGS: Clear to auscultation B/L AP and L. HEART: Regular rate and rhythm, S1, S2 without murmur. ABDOMEN: Soft, nontender, and nondistended. Positive bowel sounds. No hepatosplenomegaly was noted. EXTREMITIES: Without any cyanosis, clubbing, rash, lesions or edema. NEUROLOGIC: Without slurred speech or facial droop SKIN: No ulceration or induration present. - Assessment and Plan (1) Hemoptysis Current Visit: Yes Status: Resolved Assessment and Plan: Likely due to pneumonia and acute exacerbation of COPD High-risk patient due to history of thrombocytopenia Hemoptysis has subsided Currently no airway compromise, patient is not in distress Discussed with Dr. Hobbs who recommends starting Mucomyst IH and monitoring Continue to monitor H&H Type and screen completed (2) Diabetes mellitus Current Visit: Yes Status: Chronic Assessment and Plan: Basal, sliding scale and nutrition and insulin ADA diet Fingerstick before meals at bedtime (3) Hypertension Current Visit: Yes Status: Chronic Assessment and Plan: Stable, continue and HTN meds (4) Tobacco abuse Current Visit: Yes Status: Chronic Assessment and Plan: Strongly encouraged cessation (5) INDY (obstructive sleep apnea) Current Visit: Yes Status: Chronic Assessment and Plan: Continue CPAP at bedtime (6) Hyperlipidemia Current Visit: Yes Status: Chronic Assessment and Plan: Continue home meds (7) Carotid artery disease Current Visit: Yes Status: Chronic (8) Cirrhosis Current Visit: Yes Status: Chronic Assessment and Plan: Per history No evidence of ascites Resume home medications (9) Thrombocytopenia Current Visit: Yes Status: Chronic Assessment and Plan: History of thrombocytopenia She has cirrhosis Baseline platelet count ranges from 70-90 Platelet count from outside facility 67 No current indication for platelet transfusion SCDs for DVT prophylaxis (10) Pneumonia Current Visit: Yes Status: Acute Assessment and Plan: Patient wit cough subjective fevers and hemoptysis CXR and Chest CT from outside facility noted for pNA, no PE Continue with levaquin 750 mg IV daily Quickly, patient improving daily. Stable from a respiratory perspective and resting comfortably on 2 L nasal cannula without distress No recent hospitalization, no risk for mRSA or Pseudomonas Sputum culture few GPC otherwise normal, blood culture pending, Legionella and streptococcal antigen negative Continue oxygen support as needed Follow final cultures (11) History of esophageal varices Current Visit: Yes Status: Chronic Assessment and Plan: Has had episodes of vomiting without hematemesis Continue closely monitoring in the setting of thrombus cytopenia and recent hemoptysis He has been typed and screened, H&H remain stable, remains he was dynamically stable Continue nadolol, continue PPI, continue to monitor - Time Spent with Patient Total time spent is greater than 50% in coordination of care (as documented) at patient's floor/unit and/or counseling patient: less than 15 minutes Plan of Care Discussed with: patient Internal Medicine: Result - Labs CBC & Chem 7: 09/15/18 03:23 09/15/18 03:23 Labs: Short CBC 09/15/18 Range/Units 03:23 WBC 4.5 (4.3-11.1) K/mcL Hgb 11.7 L (12.9-16.9) g/dL Hct 37.4 L (37.5-50.1) % Plt Count 62 L (140-400) K/mcL Neutrophils # 3.6 (1.6-8.9) K/mcL BMP 09/15/18 03:23 Sodium 129 L Potassium 4.4 Chloride 97 L Carbon Dioxide 23 BUN 11 Creatinine 0.59 L Glucose 324 H Calcium 8.8 Consult Discharge Plan - Plan Referrals: Andreia Plaza, LATIN DANCER [Primary Care Provider] - (Hospital follow up appointment has been requested. ) (2) Diabetes mellitus Qualifiers: Diabetes mellitus type: type 2 Diabetes mellitus intermodal dispatcher insulin use: without alf use Diabetes mellitus complication status: without complication Qualified Code(s): E11.9 - Type 2 diabetes mellitus without complications (3) Hypertension Qualifiers: Hypertension type: essential hypertension Qualified Code(s): I10 - Essential (primary) hypertension (6) Hyperlipidemia Qualifiers: Hyperlipidemia type: unspecified Qualified Code(s): E78.5 - Hyperlipidemia, unspecified (7) Carotid artery disease Qualifiers: Carotid artery disease type: unspecified Laterality: unspecified laterality Qualified Code(s): I77.9 - Disorder of arteries and arterioles, unspecified (8) Cirrhosis Qualifiers: Hepatic cirrhosis type: unspecified hepatic cirrhosis Ascites presence: without ascites Qualified Code(s): K74.60 - Unspecified cirrhosis of liver (10) Pneumonia Qualifiers: Pneumonia type: due to unspecified organism Laterality: unspecified laterality Lung location: unspecified part of lung Qualified Code(s): J18.9 - Pneumonia, unspecified organism
[2018-09-15] MEDS: hydrOXYzine pamoate 25 MG CAPSULE PO SCH (20:12)
[2018-09-15] MEDS: Insulin DETEMIR 100 UNIT/ML X5UNITS SQ SCH (20:12)
[2018-09-15] MEDS ORDERED: Insulin LISPRO 300 UNITS/3 ML VIAL SQ SCH (21:00)
[2018-09-16] MEDS: Ipratropium/Albuterol Neb 3 ML IH SCH ×4 (03:40→22:39)
[2018-09-16] MEDS: Acetylcysteine 10% 2 ML INHSOL IH SCH ×4 (03:40→22:39)
[2018-09-16] MEDS: MethylPREDNISolone 40 MG/ML VIAL IVP SCH (05:36)
[2018-09-16 08:16] LABS: Mean Corpuscular Volume 79.5 fL (83.0-100.0); Mean Platelet Volume 10.5 fL (9.4-12.4)
[2018-09-16 08:18] LABS: Hematocrit 38.1 % (37.5-50.1); Hemoglobin 11.9 g/dL (12.9-16.9); Immature Platelets 8.1 % (1.1-6.1); Mean Corpuscular HGB Conc 31.2 g/dL (31.6-35.5); Mean Corpuscular Hemoglobin 24.8 pg (28.0-33.3); Red Blood Count 4.79 M/mcL (4.19-5.50)
[2018-09-16] MEDS: Spironolactone 25 MG TABLET PO SCH ×2 (08:18→20:55)
[2018-09-16] MEDS: Gabapentin 300 MG CAPSULE PO SCH ×4 (08:19→20:55)
[2018-09-16] MEDS: Levofloxacin 750 MG/150 ML 750 MG/150 ML BAG IVPB SCH (08:19)
[2018-09-16] MEDS: Magnesium Oxide 400 MG TABLET PO SCH (08:19)
[2018-09-16] MEDS: Venlafaxine XR (24 HR) 150 MG CAP.ER.24H PO SCH (08:19)
[2018-09-16] MEDS: Insulin LISPRO 300 UNITS/3 ML VIAL SQ SCH ×4 (08:19→20:57)
[2018-09-16] MEDS: hydroCHLOROthiazide 25 MG TABLET PO SCH (08:19)
[2018-09-16 08:29] LABS: BUN/Creatinine Ratio 27 (6-26); Blood Urea Nitrogen 17 mg/dL (6-20); Calcium 8.8 mg/dL (8.6-10.3); Carbon Dioxide 28 mEq/L (23-29); Chloride 96 mEq/L (98-107); Glucose 319 mg/dL (70-105); Osmolality,Calculated 284 (280-300); Potassium 4.5 mEq/L (3.5-5.1); Sodium 130 mEq/L (136-145); eGFR For Non-African Americans > 60 (> 60)
--- NOTE | 2018-09-16 10:07 | Internal Med Progress Note ---
Hospitalist Progress Note - Encounter Date of Encounter: 09/16/18 Time of Encounter: 10:02 - Subjective Interval History: Presented with pneumonia and a COPD as well as hemoptysis. No acute changes and condition overnight. No return of hemoptysis throughout stay thus far. He had one episode of bilious emesis yesterday as well as nausea. Nausea has not returned and he has not had any additional episodes of emesis. - Exam Vitals: Temp Pulse Resp BP Pulse Ox 98.0 F 75 17 118/74 92 09/16/18 07:19 09/16/18 07:19 09/16/18 07:19 09/16/18 07:19 09/16/18 08:28 Exam: PHYSICAL EXAMINATION: GENERAL: Elderly male, NAD, A&O 3 HEENT: Head is normocephalic and atraumatic. Extraocular muscles are intact. Pupils are equal, round, and reactive to light and accommodation. NECK: Supple. No carotid bruits. No lymphadenopathy or thyromegaly. LUNGS: Clear to auscultation B/L AP and L. HEART: Regular rate and rhythm, S1, S2 without murmurs, rubs, gallops. ABDOMEN: Soft, nontender, and nondistended. Positive bowel sounds. No hepatosplenomegaly was noted. EXTREMITIES: Without any cyanosis, clubbing, rash, lesions or edema. NEUROLOGIC: Without slurred speech or facial droop SKIN: No ulceration or induration present. - Assessment and Plan (1) Hemoptysis Current Visit: Yes Status: Resolved Assessment and Plan: 09/16--hemoptysis has resolved. Likely exacerbated by pneumonia and acute exacerbation of COPD. Also has a long-standing history of thrombocytopenia. Platelets improving today. clinically, the patient remained stable is denying any respiratory distress. H&H stable. Pulmonology following consultation. (2) Diabetes mellitus Current Visit: Yes Status: Chronic Assessment and Plan: History of DM Hyperglycemia persistent in the setting of IV steroid use with a COPD Increase Basal insulin to 15 units at bedtime, increase sliding scale to high coverage ADA diet Fingerstick before meals at bedtime (3) Hypertension Current Visit: Yes Status: Chronic Assessment and Plan: History of hypertension BP stable and controlled Continuing anti-HTN medications (4) Tobacco abuse Current Visit: Yes Status: Chronic Assessment and Plan: Strongly encouraged cessation (5) INDY (obstructive sleep apnea) Current Visit: Yes Status: Chronic Assessment and Plan: Continue CPAP at bedtime (6) Hyperlipidemia Current Visit: Yes Status: Chronic Assessment and Plan: Continue home meds (7) Carotid artery disease Current Visit: Yes Status: Chronic Assessment and Plan: History of CAD. Continues to be chest pain-free at this time. Continue telemetry, Continue home medications except aspirin (8) Cirrhosis Current Visit: Yes Status: Chronic Assessment and Plan: Per history No evidence of ascites Resume home medications (9) Thrombocytopenia Current Visit: Yes Status: Chronic Assessment and Plan: History of thrombocytopenia She has cirrhosis Baseline platelet count ranges from 70-90 Platelet count from outside facility 67 No current indication for platelet transfusion SCDs for DVT prophylaxis (10) Pneumonia Current Visit: Yes Status: Acute Assessment and Plan: Patient wit cough subjective fevers and hemoptysis CXR and Chest CT from outside facility noted for pNA, no PE Continue with levaquin 750 mg IV daily Quickly, patient improving daily. Stable from a respiratory perspective and resting comfortably on 2 L nasal cannula without distress No recent hospitalization, no risk for mRSA or Pseudomonas Sputum culture few GPC otherwise normal, blood culture pending, Legionella and streptococcal antigen negative Continue oxygen support as needed Follow final cultures (11) History of esophageal varices Current Visit: Yes Status: Chronic Assessment and Plan: Has had episodes of vomiting without hematemesis Continue closely monitoring in the setting of thrombus cytopenia and recent hemoptysis He has been typed and screened, H&H remain stable, remains he was dynamically st able Continue nadolol, continue PPI, continue to monitor DVT Prophylaxis: EPCD's - Time Spent with Patient Total time spent is greater than 50% in coordination of care (as documented) at patient's floor/unit and/or counseling patient: less than 15 minutes Plan of Care Discussed with: patient Internal Medicine: Result - Labs CBC & Chem 7: 09/16/18 07:52 09/16/18 07:52 Labs: Short CBC 09/16/18 Range/Units 07:52 WBC 9.2 D (4.3-11.1) K/mcL Hgb 11.9 L (12.9-16.9) g/dL Hct 38.1 (37.5-50.1) % Plt Count 72 L (140-400) K/mcL BMP 09/16/18 07:52 Sodium 130 L Potassium 4.5 Chloride 96 L Carbon Dioxide 28 BUN 17 Creatinine 0.62 L Glucose 319 H Calcium 8.8 Consult Discharge Plan - Plan Referrals: Andreia Plaza, KYLEE [Primary Care Provider] - (Hospital follow up appointment has been requested. ) (2) Diabetes mellitus Qualifiers: Diabetes mellitus type: type 2 Diabetes mellitus extermination supervisor insulin use: without halfway use Diabetes mellitus complication status: without complication Qualified Code(s): E11.9 - Type 2 diabetes mellitus without complications (3) Hypertension Qualifiers: Hypertension type: essential hypertension Qualified Code(s): I10 - Essential (primary) hypertension (6) Hyperlipidemia Qualifiers: Hyperlipidemia type: unspecified Qualified Code(s): E78.5 - Hyperlipidemia, unspecified (7) Carotid artery disease Qualifiers: Carotid artery disease type: unspecified Laterality: unspecified laterality Qualified Code(s): I77.9 - Disorder of arteries and arterioles, unspecified (8) Cirrhosis Qualifiers: Hepatic cirrhosis type: unspecified hepatic cirrhosis Ascites presence: without ascites Qualified Code(s): K74.60 - Unspecified cirrhosis of liver (10) Pneumonia Qualifiers: Pneumonia type: due to unspecified organism Laterality: unspecified laterality Lung location: unspecified part of lung Qualified Code(s): J18.9 - Pneumonia, unspecified organism
[2018-09-16] MEDS: Budesonide/Formoterol 160/4.5 1 PUFF INH IH SCH ×2 (11:29→22:39)
[2018-09-16] MEDS: Insulin DETEMIR 100 UNIT/ML X5UNITS SQ SCH (20:55)
[2018-09-16] MEDS: hydrOXYzine pamoate 25 MG CAPSULE PO SCH (20:55)
[2018-09-17] MEDS: Ipratropium/Albuterol Neb 3 ML IH SCH ×4 (03:47→21:16)
[2018-09-17] MEDS: Acetylcysteine 10% 2 ML INHSOL IH SCH ×4 (03:48→21:16)
[2018-09-17] MEDS ORDERED: Aminoglycoside Consult 1 EACH MC ONE (05:48)
[2018-09-17] MEDS: Insulin LISPRO 300 UNITS/3 ML VIAL SQ SCH ×4 (07:50→20:47)
[2018-09-17] MEDS: predniSONE 20 MG TABLET PO SCH (07:50)
[2018-09-17] MEDS: Gabapentin 300 MG CAPSULE PO SCH ×4 (07:50→20:47)
[2018-09-17] MEDS: Venlafaxine XR (24 HR) 150 MG CAP.ER.24H PO SCH (07:50)
[2018-09-17] MEDS: hydroCHLOROthiazide 25 MG TABLET PO SCH (07:50)
[2018-09-17] MEDS: Magnesium Oxide 400 MG TABLET PO SCH (07:50)
[2018-09-17] MEDS: Spironolactone 25 MG TABLET PO SCH ×2 (07:51→20:47)
[2018-09-17 10:31] LABS: BUN/Creatinine Ratio 27 (6-26); Blood Urea Nitrogen 18 mg/dL (6-20); eGFR For Non-African Americans > 60 (> 60)
[2018-09-17 11:04] LABS: Basophils % 0.3 %; Eosinophils # 0.2 K/mcL (0.0-0.6); Eosinophils % 3.2 %; Hematocrit 42.3 % (37.5-50.1); Hemoglobin 12.3 g/dL (12.9-16.9); Immature Granulocytes % 0.3 % (0-4); Lymphocytes % 14.6 %; Mean Corpuscular HGB Conc 29.1 g/dL (31.6-35.5); Mean Corpuscular Hemoglobin 24.8 pg (28.0-33.3); Mean Corpuscular Volume 85.3 fL (83.0-100.0); Monocytes % 7.9 %; Neutrophils # 5.1 K/mcL (1.6-8.9); Red Blood Count 4.96 M/mcL (4.19-5.50); Segmented Neutrophils % 73.7 %
[2018-09-17 11:06] LABS: Monocytes # 0.6 K/mcL (0.0-1.3); Platelet Count 75 K/mcL (140-400)
[2018-09-17 11:14] LABS: BUN/Creatinine Ratio 28 (6-26); Blood Urea Nitrogen 18 mg/dL (6-20); Calcium 8.6 mg/dL (8.6-10.3); Carbon Dioxide 29 mEq/L (23-29); Chloride 100 mEq/L (98-107); Glucose 174 mg/dL (70-105); Osmolality,Calculated 282 (280-300); Potassium 4.2 mEq/L (3.5-5.1); Sodium 133 mEq/L (136-145); eGFR For Non-African Americans > 60 (> 60)
[2018-09-17] MEDS: Budesonide/Formoterol 160/4.5 1 PUFF INH IH SCH ×2 (11:35→21:16)
--- NOTE | 2018-09-17 19:07 | Internal Med Progress Note ---
Hospitalist Progress Note - Encounter Date of Encounter: 09/17/18 Time of Encounter: 10:00 - Subjective Interval History: Patient was seen and examined at bedside currently denies any chest pain or shortness of breath - Exam Vitals: Temp Pulse Resp BP Pulse Ox 97.9 F 79 18 114/69 92 09/17/18 15:50 09/17/18 15:50 09/17/18 15:58 09/17/18 15:50 09/17/18 16:07 Exam: PHYSICAL EXAMINATION: GENERAL: Elderly male, NAD, A&O 3 HEENT: Head is normocephalic and atraumatic. Extraocular muscles are intact. Pupils are equal, round, and reactive to light and accommodation. NECK: Supple. No carotid bruits. No lymphadenopathy or thyromegaly. LUNGS: Clear to auscultation B/L AP and L. HEART: Regular rate and rhythm, S1, S2 without murmurs, rubs, gallops. ABDOMEN: Soft, nontender, and nondistended. Positive bowel sounds. No hepatosplenomegaly was noted. EXTREMITIES: Without any cyanosis, clubbing, rash, lesions or edema. NEUROLOGIC: Without slurred speech or facial droop SKIN: No ulceration or induration present. - Assessment and Plan (1) Diabetes mellitus Current Visit: Yes Status: Chronic Assessment and Plan: History of DM Hyperglycemia persistent in the setting of IV steroid use with a COPD Increase Basal insulin to 15 units at bedtime, increase sliding scale to high coverage ADA diet Fingerstick before meals at bedtime 09/17 Persistent hyperglycemia secondary to steroid use Continue with basal insulin as well as sliding scale high coverage Accu-Cheks before meals and at bedtime (2) Hypertension Current Visit: Yes Status: Chronic Assessment and Plan: History of hypertension BP stable and controlled Continuing anti-HTN medications 09/17 Stable continue with home medications (3) Tobacco abuse Current Visit: Yes Status: Chronic Assessment and Plan: Strongly encouraged cessation (4) INDY (obstructive sleep apnea) Current Visit: Yes Status: Chronic Assessment and Plan: Continue CPAP at bedtime 09/17 Continue CPAP (5) Hyperlipidemia Current Visit: Yes Status: Chronic Assessment and Plan: Continue home meds 09/17 Continues to (6) Carotid artery disease Current Visit: Yes Status: Chronic Assessment and Plan: History of CAD. Continues to be chest pain-free at this time. Continue telemetry, Continue home medications except aspirin 09/17 Continue telemetry and home medication Continues to be chest pain-free (7) Cirrhosis Current Visit: Yes Status: Chronic Assessment and Plan: Per history No evidence of ascites Resume home medications 09/17 Stable continue as above (8) Hemoptysis Current Visit: Yes Status: Resolved Assessment and Plan: 09/16--hemoptysis has resolved. Likely exacerbated by pneumonia and acute exacerbation of COPD. Also has a long-standing history of thrombocytopenia. Platelets improving today. clinically, the patient remained stable is denying any respiratory distress. H&H stable. Pulmonology following consultation. 09/17 Platelets are stable today-has history of thrombocytopenia -hemoptysis has resolved Follow-up with pulmonology as outpatient (9) Thrombocytopenia Current Visit: Yes Status: Chronic Assessment and Plan: History of thrombocytopenia She has cirrhosis Baseline platelet count ranges from 70-90 Platelet count from outside facility 67 No current indication for platelet transfusion SCDs for DVT prophylaxis 09/17 History of thrombocytopenia as well as neuroses Platelets are stable 75 at this time SCDs for DVT prophylaxis (10) Pneumonia Current Visit: Yes Status: Acute Assessment and Plan: Patient wit cough subjective fevers and hemoptysis CXR and Chest CT from outside facility noted for pNA, no PE Continue with levaquin 750 mg IV daily Quickly, patient improving daily. Stable from a respiratory perspective and resting comfortably on 2 L nasal cannula without distress No recent hospitalization, no risk for mRSA or Pseudomonas Sputum culture few GPC otherwise normal, blood culture pending, Legionella and streptococcal antigen negative Continue oxygen support as needed Follow final cultures 09/17 We will DC vancomycin and place on doxycycline according culture sensitivities Legionella and strep are negative Continue with oxygen support (11) History of esophageal varices Current Visit: Yes Status: Chronic Assessment and Plan: Has had episodes of vomiting without hematemesis Continue closely monitoring in the setting of thrombus cytopenia and recent hemoptysis He has been typed and screened, H&H remain stable, remains he was dynamically stable Continue nadolol, continue PPI, continue to monitor 09/17 Had an episode of vomiting no hematemesis H&H has remained stable Continue with nadolol PPI DVT Prophylaxis: EPCD's - Time Spent with Patient Total time spent is greater than 50% in coordination of care (as documented) at patient's floor/unit and/or counseling patient: Internal Medicine: Result - Labs CBC & Chem 7: 11/20/18 10:37 09/17/18 10:37 Labs: Short CBC 09/17/18 Range/Units 10:37 WBC 6.9 (4.3-11.1) K/mcL Hgb 12.3 L (12.9-16.9) g/dL Hct 42.3 (37.5-50.1) % Plt Count 75 L (140-400) K/mcL Neutrophils # 5.1 (1.6-8.9) K/mcL BMP 09/17/18 09/17/18 10:02 10:37 Sodium 133 L Potassium 4.2 Chloride 100 Carbon Dioxide 29 BUN 18 18 Creatinine 0.67 L 0.64 L Glucose 174 H Calcium 8.6 Consult Discharge Plan - Plan Referrals: Andreia Plaza CNP [Primary Care Provider] - (Hospital follow up appointment has been requested. 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 Diabetes mellitus complication status: without complication Qualified Code(s): E11.9 - Type 2 diabetes mellitus without complications (2) Hypertension Qualifiers: Hypertension type: essential hypertension Qualified Code(s): I10 - Essential (primary) hypertension (5) Hyperlipidemia Qualifiers: Hyperlipidemia type: unspecified Qualified Code(s): E78.5 - Hyperlipidemia, unspecified (6) Carotid artery disease Qualifiers: Carotid artery disease type: unspecified Laterality: unspecified laterality Qualified Code(s): I77.9 - Disorder of arteries and arterioles, unspecified (7) Cirrhosis Qualifiers: Hepatic cirrhosis type: unspecified hepatic cirrhosis Ascites presence: without ascites Qualified Code(s): K74.60 - Unspecified cirrhosis of liver (10) Pneumonia Qualifiers: Pneumonia type: due to unspecified organism Laterality: unspecified laterality Lung location: unspecified part of lung Qualified Code(s): J18.9 - Pneumonia, unspecified organism
[2018-09-17] MEDS: Doxycycline 100 MG CAPSULE PO SCH (20:47)
[2018-09-17] MEDS: hydrOXYzine pamoate 25 MG CAPSULE PO SCH (20:47)
[2018-09-17] MEDS: Insulin DETEMIR 100 UNIT/ML X5UNITS SQ SCH (20:48)
[2018-09-18] MEDS: Ipratropium/Albuterol Neb 3 ML IH SCH ×2 (04:24→10:01)
[2018-09-18] MEDS: Acetylcysteine 10% 2 ML INHSOL IH SCH ×2 (04:24→10:02)
[2018-09-18 05:59] LABS: Basophils % 0.3 %; Hemoglobin 12.2 g/dL (12.9-16.9); Immature Granulocytes % 0.4 % (0-4); Monocytes % 8.3 %
[2018-09-18 06:01] LABS: Eosinophils # 0.3 K/mcL (0.0-0.6); Eosinophils % 2.9 %; Hematocrit 39.3 % (37.5-50.1); Immature Platelets 11.7 % (1.1-6.1); Lymphocytes # 1.8 K/mcL (0.6-4.6); Mean Corpuscular Hemoglobin 24.7 pg (28.0-33.3); Mean Corpuscular Volume 79.6 fL (83.0-100.0); Monocytes # 0.9 K/mcL (0.0-1.3); Neutrophils # 7.5 K/mcL (1.6-8.9); Red Blood Count 4.94 M/mcL (4.19-5.50); Red Cell Distribution Width 18.6 % (11.5-14.5); Segmented Neutrophils % 71.1 %
[2018-09-18 06:06] LABS: Platelet Count 57 K/mcL (140-400)
[2018-09-18 06:15] LABS: BUN/Creatinine Ratio 28 (6-26); Blood Urea Nitrogen 17 mg/dL (6-20); Calcium 8.6 mg/dL (8.6-10.3); Carbon Dioxide 28 mEq/L (23-29); Chloride 100 mEq/L (98-107); Glucose 201 mg/dL (70-105); Osmolality,Calculated 283 (280-300); Potassium 3.9 mEq/L (3.5-5.1); Sodium 133 mEq/L (136-145); eGFR For Non-African Americans > 60 (> 60)
[2018-09-18 06:24] LABS: Anisocytosis 1+ (Not Present); Platelet Estimate Decreased (Normal)
[2018-09-18] MEDS: Venlafaxine XR (24 HR) 150 MG CAP.ER.24H PO SCH (08:02)
[2018-09-18] MEDS: Magnesium Oxide 400 MG TABLET PO SCH (08:02)
[2018-09-18] MEDS: hydroCHLOROthiazide 25 MG TABLET PO SCH (08:02)
[2018-09-18] MEDS: Spironolactone 25 MG TABLET PO SCH (08:02)
[2018-09-18] MEDS: Doxycycline 100 MG CAPSULE PO SCH (08:02)
[2018-09-18] MEDS: predniSONE 20 MG TABLET PO SCH (08:02)
[2018-09-18] MEDS: Insulin LISPRO 300 UNITS/3 ML VIAL SQ SCH ×2 (08:03→12:43)
[2018-09-18] MEDS: Gabapentin 300 MG CAPSULE PO SCH (08:03)
[2018-09-18] MEDS: Budesonide/Formoterol 160/4.5 1 PUFF INH IH SCH (10:02)
[2018-09-18 11:18] VITALS: BP 108/69
--- NOTE | 2018-09-18 13:24 | Discharge Summary ---
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-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 use Diabetes mellitus complication status: without complica tion Qualified Code(s): E11.9 - Type 2 diabetes mellitus without complications (2) Hypertension Priority: Secondary Status: Chronic Qualifiers: Hypertension type: essential hypertension Qualified Code(s): I10 - Essential (primary) hypertension (3) Tobacco abuse Priority: Secondary Status: Chronic (4) INDY (obstructive sleep apnea) Priority: Secondary Status: Chronic (5) Hyperlipidemia Priority: Secondary Status: Chronic Qualifiers: Hyperlipidemia type: unspecified Qualified Code(s): E78.5 - Hyperlipidemia, unspecified (6) Carotid artery disease Priority: Secondary Status: Chronic Qualifiers: Carotid artery disease type: unspecified Laterality: unspecified laterality Qualified Code(s): I77.9 - Disorder of arteries and arterioles, unspecified (7) Cirrhosis Priority: Secondary Status: Chronic Qualifiers: Hepatic cirrhosis type: unspecified hepatic cirrhosis Ascites presence: without ascites Qualified Code(s): K74.60 - Unspecified cirrhosis of liver (8) Hemoptysis Priority: Secondary Status: Resolved (9) Thrombocytopenia Priority: Secondary Status: Chronic (10) Pneumonia Priority: Primary Status: Acute Qualifiers: Pneumonia type: due to unspecified organism Laterality: unspecified laterality Lung location: unspecified part of lung Qualified Code(s): J18.9 - Pneumonia, unspecified organism (11) History of esophageal varices Priority: Secondary Status: Chronic Hospital course: Mr. Hein is a 58 year old male past medical history of CAD tobacco use hyperlipidemia hypertension liver cirrhosis with history of esophageal varices status post banding chronic thrombocytopenia presented to an outside facility complaints of cough and productive of usually done with blood streaks. He was brought to [facility] ED for evaluation chest x-ray and chest CT significant for pneumonia no PE started on Levaquin initially and then switched to vancomycin concern for MRSA sputum culture sensitive to doxycycline patient placed on doxycycline 1 next 10 days. Strep pneumonia and legionella are negative. Patient requiring oxygen supplementation-seen by pulmonology-no hemoptysis this admission recommending patient follow-up as outpatient. Patient did qualify for home O2 and has been set up with oxygen. His respiratory state has improved patient has been ambulating without any difficulty or shortness of breath. Denies any chest pain, his sats are stable on 2 L. Advised patient follow-up with primary care provider since this providerhim best he can adjust medications accordingly. Also advised patient follow-up with pulmonary. He will be discharged with prescriptions for doxycycline to complete a 10 day course of steroid taper and Symbicort Patient verbalized understanding he is hemodynamically stable at this time is ready for discharge Discharge discussed with: patient - Time Spent with Patient Total time spent providing and/or coordinating discharge services: - Discharge Medications Prescriptions: Budesonide/Formoterol 160/4.5 [Symbicort 160/4.5] 2 puff IH BIDR #1 inh Doxycycline 100 mg PO BID 5 Days capsule predniSONE [PredniSONE] 10 mg PO DAILY #20 tablet Home Medications: Pantoprazole Sodium [Protonix] 40 mg PO DAILY 10/08/15 [History] Magnesium Chloride [Mag Delay] 64 mg PO DAILY 04/06/17 [History] Multivitamin [Multivitamins] 1 each PO DAILY 04/06/17 [History] Potassium Chloride [K-Tab ER] 20 meq PO DAILY 04/06/17 [History] Spironolactone [Aldactone] 25 mg PO BID 04/06/17 [History] Metformin HCl [Glucophage] 1,000 mg PO BID 04/12/17 [History] glipiZIDE [Glipizide] 10 mg PO DAILY 04/12/17 [History] Canagliflozin [Invokana] 100 mg PO DAILY 11/04/17 [History] hydrOXYzine HCl [Hydroxyzine HCl] 25 mg PO HS 11/04/17 [History] BuPROPion SR (12 HR) [Wellbutrin SR] 150 mg PO BID 09/14/18 [History] Escitalopram [Lexapro] 10 mg PO DAILY 09/14/18 [History] Fluticasone/Salmeterol [Advair 250-50 Diskus] 1 puff IH BID 09/14/18 [History] Furosemide [Lasix] 20 mg PO DAILY 09/14/18 [History] Gabapentin [Neurontin] 300 mg PO TID 09/14/18 [History] Nadolol 20 mg PO DAILY 09/14/18 [History] Budesonide/Formoterol 160/4.5 [Symbicort 160/4.5] 2 puff IH BIDR #1 inh 09/18/18 [Rx] Doxycycline 100 mg PO BID 5 Days capsule 09/18/18 [Rx] Venlafaxine XR (24 HR) [Effexor Xr] 150 mg PO DAILY cap.er.24h 09/18/18 [Rx] hydroCHLOROthiazide [Hydrochlorothiazide] 25 mg PO DAILY tablet 09/18/18 [Rx] predniSONE [PredniSONE] 10 mg PO DAILY #20 tablet 09/18/18 [Rx] Allergies/Adverse Reactions: Allergy/AdvReac Type Severity Reaction Status Date / Time Penicillins Allergy Hives Verified 09/14/18 16:13 Date of admission: 09/14/18 05:47 Primary care physician: Andreia Plaza CNP Consults: 09/14/18 08:45 Consult to Pulmonology [CONS] Routine Consulting Provider: [facility] Oneil Snow Reason for Consult: Hemoptysis, pneumonia, thrombocytopenia. Call Completed: Yes 09/16/18 09:32 Consult to Nurse Navigator [CONS] Routine Comment: PNEUMONIA Discharging clinician: Radha Layne Anticipated date of discharge: 09/18/18 - Constitutional Vitals: Temp Pulse Resp BP Pulse Ox 98.0 F 72 18 108/69 95 09/18/18 11:11 09/18/18 11:11 09/18/18 11:11 09/18/18 11:11 09/18/18 11:11 General appearance: Present: A&O X 3, pleasant, no acute distress Exam: PHYSICAL EXAMINATION: GENERAL: Elderly male, NAD, A&O 3 HEENT: Head is normocephalic and atraumatic. Extraocular muscles are intact. Pupils are equal, round, and reactive to light and accommodation. NECK: Supple. No carotid bruits. No lymphadenopathy or thyromegaly. LUNGS: Clear to auscultation B/L AP and L. HEART: Regular rate and rhythm, S1, S2 without murmurs, rubs, gallops. ABDOMEN: Soft, nontender, and nondistended. Positive bowel sounds. No hepatosplenomegaly was noted. EXTREMITIES: Without any cyanosis, clubbing, rash, lesions or edema. NEUROLOGIC: Without slurred speech or facial droop SKIN: No ulceration or induration present. - Patient Status Disposition: Home Health Service Condition: Good Functional capacity at discharge: independent ambulation Overall status at discharge: patient is progressing back to baseline - Discharge Instructions Instructions: Diabetes Mellitus Type 2 in Adults (DC), Pneumonia (DC) Follow Up With: Andreia Plaza CNP [Primary Care Provider] - (Hospital follow up appointment has been requested. ) Additional Instructions: Sleep study 09/26/18 at 8:30pm - Diet and Activity Activity: as per physical therapy Diet: advance to your usual diet
--- NOTE | 2018-09-18 14:05 | Physician Discharge Referral ---
Home Health/Hosp Referral Info Transfer to: Home Health Attending Provider: Travis Provider in Charge Post Discharge: PCP - Diagnosis (1) Diabetes mellitus Priority: Secondary Status: Chronic (2) Hypertension Priority: Secondary Status: Chronic (3) Tobacco abuse Priority: Secondary Status: Chronic (4) INDY (obstructive sleep apnea) Priority: Secondary Status: Chronic (5) Hyperlipidemia Priority: Secondary Status: Chronic (6) Carotid artery disease Priority: Secondary Status: Chronic (7) Cirrhosis Priority: Secondary Status: Chronic (8) Hemoptysis Priority: Secondary Status: Resolved (9) Thrombocytopenia Priority: Secondary Status: Chronic (10) Pneumonia Priority: Primary Status: Acute (11) History of esophageal varices Priority: Secondary Status: Chronic - Respiratory Orders Oxygen / L per min Smoking Cessation: Smoking cessation has been advised. For more information, call the [employer] Tobacco Quit Line at 6-138-HJNC-NOW. - Diet/Nutrition Diet/Nutrition Orders: Regular - Activity Activity Orders: Ambulate - Services Needed Following services are medically necessary services: Nursing, Physical Therapy - Transfer Medications Prescriptions: Budesonide/Formoterol 160/4.5 [Symbicort 160/4.5] 2 puff IH BIDR #1 inh Doxycycline 100 mg PO BID 5 Days capsule predniSONE [PredniSONE] 10 mg PO DAILY #20 tablet Home Medications: Pantoprazole Sodium [Protonix] 40 mg PO DAILY 10/08/15 [History] Magnesium Chloride [Mag Delay] 64 mg PO DAILY 04/06/17 [History] Multivitamin [Multivitamins] 1 each PO DAILY 04/06/17 [History] Potassium Chloride [K-Tab ER] 20 meq PO DAILY 04/06/17 [History] Spironolactone [Aldactone] 25 mg PO BID 04/06/17 [History] Metformin HCl [Glucophage] 1,000 mg PO BID 04/12/17 [History] glipiZIDE [Glipizide] 10 mg PO DAILY 04/12/17 [History] Canagliflozin [Invokana] 100 mg PO DAILY 11/04/17 [History] hydrOXYzine HCl [Hydroxyzine HCl] 25 mg PO HS 11/04/17 [History] BuPROPion SR (12 HR) [Wellbutrin SR] 150 mg PO BID 09/14/18 [History] Escitalopram [Lexapro] 10 mg PO DAILY 09/14/18 [History] Fluticasone/Salmeterol [Advair 250-50 Diskus] 1 puff IH BID 09/14/18 [History] Furosemide [Lasix] 20 mg PO DAILY 09/14/18 [History] Gabapentin [Neurontin] 300 mg PO TID 09/14/18 [History] Nadolol 20 mg PO DAILY 09/14/18 [History] Budesonide/Formoterol 160/4.5 [Symbicort 160/4.5] 2 puff IH BIDR #1 inh 09/18/18 [Rx] Doxycycline 100 mg PO BID 5 Days capsule 09/18/18 [Rx] Venlafaxine XR (24 HR) [Effexor Xr] 150 mg PO DAILY cap.er.24h 09/18/18 [Rx] hydroCHLOROthiazide [Hydrochlorothiazide] 25 mg PO DAILY tablet 09/18/18 [Rx] predniSONE [PredniSONE] 10 mg PO DAILY #20 tablet 09/18/18 [Rx] Allergies/Adverse Reactions: Allergy/AdvReac Type Severity Reaction Status Date / Time Penicillins Allergy Hives Verified 09/14/18 16:13 Certification: Further, I certify that my clinical findings support that this patient is homebound (i.e. absences from home require considerable and taxing effort and are for medical reasons or congregation services or infrequently or short duration when for other reasons) because: Homebound Reason: Severity of cardiac or pulmonary status limits activity tolerance Attestation: My signature below is to certify that this patient is under my care and that I, or nurse practitioner, or a physician's assistant professor of nursing working with me, has a woof-go-[id number] encounter with this patient.
== END 2018-09-18 15:25 | disposition home health service (06) | DRG 194 ==
LOC: 3BNU → SUATTDRO 05:47
PROVIDERS: ADMIT Internal Medicine; ATTEND Internal Medicine

== ENCOUNTER 2020-05-13 00:27 | Inpatient (IN) ==
[2020-05-13] MEDS ORDERED: Dextrose Gel 15 GM/37.5 ML TUBE PO PRN ×2 (04:31)
[2020-05-13] MEDS ORDERED: *HR* Dextrose 50 % in Water (Vial) 50 ML VIAL IVP PRN (04:31)
[2020-05-13] MEDS ORDERED: Naloxone 0.4 MG/ML INJ IVP PRN (04:31)
[2020-05-13] MEDS ORDERED: D5% in Water 1,000 ML IVC PRN (04:31)
[2020-05-13] MEDS ORDERED: Ondansetron 4 MG/2 ML VIAL IVP PRN (04:42)
[2020-05-13 05:31] LABS: Hemoglobin 10.1 g/dL (12.9-16.9); Immature Granulocytes % 0.4 % (0-4)
[2020-05-13 05:32] LABS: INR 1.3; Prothrombin Time 14.5 Seconds (9.4-12.1)
[2020-05-13 05:33] LABS: Basophils % 0.4 %; Eosinophils # 0.2 K/mcL (0.0-0.6); Eosinophils % 3.5 %; Hematocrit 32.9 % (37.5-50.1); Immature Platelets 5.9 % (1.1-6.1); Mean Corpuscular HGB Conc 30.7 g/dL (31.6-35.5); Mean Corpuscular Hemoglobin 29.2 pg (28.0-33.3); Mean Corpuscular Volume 95.1 fL (83.0-100.0); Mean Platelet Volume 10.8 fL (9.4-12.4); Monocytes # 0.5 K/mcL (0.0-1.3); Monocytes % 10.4 %; Neutrophils # 3.3 K/mcL (1.6-8.9); Red Blood Count 3.46 M/mcL (4.19-5.50); Red Cell Distribution Width 15.7 % (11.5-14.5); Segmented Neutrophils % 71.3 %; White Blood Count 4.6 K/mcL (4.3-11.1)
[2020-05-13 05:35] LABS: Activated Partial Thrombo Time 32.3 Seconds (26.0-36.0)
[2020-05-13 05:37] LABS: Lymphocytes # 0.6 K/mcL (0.6-4.6); Platelet Count 69 K/mcL (140-400)
[2020-05-13 05:48] LABS: Alanine Aminotransferase 13 Units/L (7-52); Albumin 2.9 g/dL (3.5-5.7); Albumin/Globulin Ratio 0.7 (1.1-2.2); Alkaline Phosphatase 86 Units/L (34-104); Aspartate Amino Transferase 24 Units/L (13-39); BUN/Creatinine Ratio 9 (6-26); Bilirubin,Total 1.3 mg/dL (0.3-1.0); Blood Urea Nitrogen 5 mg/dL (6-20); Calcium 8.7 mg/dL (8.6-10.3); Carbon Dioxide 29 mEq/L (23-29); Chloride 98 mEq/L (98-107); Globulin 4.4 g/dL (2.4-3.5); Glucose 207 mg/dL (70-105); Magnesium 1.7 mg/dL (1.6-2.6); Osmolality,Calculated 273 (280-300); Phosphorous 2.6 mg/dL (2.7-4.5); Potassium 3.6 mEq/L (3.5-5.1); Sodium 130 mEq/L (136-145); Total Protein 7.3 g/dL (6.4-8.9); eGFR For African Americans > 60 (> 60); eGFR For Non-African Americans > 60 (> 60)
[2020-05-13] MEDS ORDERED: Insulin LISPRO 300 UNITS/3 ML VIAL SQ SCH ×2 (07:30→21:00)
[2020-05-13 09:08] LABS: Estimated Average Glucose 229 mg/dl; Hemoglobin A1C 9.6 %
[2020-05-13 11:20] LABS: Amylase 20 Units/L (29-103)
[2020-05-13] MEDS: Insulin LISPRO 300 UNITS/3 ML VIAL SQ SCH ×3 (13:47→21:55)
[2020-05-13 15:04] LABS: Glucose,Peritoneal Fluid 225 mg/dL (No Ref Range); Total Protein,Peritoneal Fluid < 3.0 g/dL
[2020-05-13 15:15] LABS: Albumin 2.8 g/dL (3.5-5.7); Albumin/Globulin Ratio 0.6 (1.1-2.2); Globulin 4.4 g/dL (2.4-3.5); Total Protein 7.2 g/dL (6.4-8.9)
[2020-05-13] MEDS: cefTRIAXone 2,000 MG in Water for inj. (sterile) 20 ML IVP SCH (16:50)
[2020-05-13 17:55] LABS: Appearance of Body Fluid Clear (Clear); Volume of Body Fluid 60 mL
[2020-05-13] MEDS ORDERED: Albumin 25% 25gram/100mL 25 GM/100 ML IV.SOLN IVPB ONE (20:00)
[2020-05-13] MEDS: Insulin DETEMIR 100 UNIT/ML X5UNITS SQ SCH (21:55)
[2020-05-13] MEDS: Lactulose Oral Soln 20 GM/30 ML UDC PO SCH (21:55)
[2020-05-14 03:05] LABS: Basophils % 0.5 %; Immature Granulocytes % 0.3 % (0-4); Mean Platelet Volume 11.2 fL (9.4-12.4)
[2020-05-14 03:06] LABS: INR 1.3; Prothrombin Time 14.9 Seconds (9.4-12.1)
[2020-05-14 03:07] LABS: Eosinophils # 0.2 K/mcL (0.0-0.6); Eosinophils % 5.2 %; Hematocrit 33.6 % (37.5-50.1); Hemoglobin 10.4 g/dL (12.9-16.9); Immature Platelets 5.7 % (1.1-6.1); Lymphocytes # 0.7 K/mcL (0.6-4.6); Lymphocytes % 17.2 %; Mean Corpuscular Hemoglobin 29.1 pg (28.0-33.3); Mean Corpuscular Volume 94.1 fL (83.0-100.0); Monocytes # 0.4 K/mcL (0.0-1.3); Monocytes % 10.4 %; Neutrophils # 2.5 K/mcL (1.6-8.9); Platelet Count 70 K/mcL (140-400); Red Blood Count 3.57 M/mcL (4.19-5.50); Red Cell Distribution Width 15.6 % (11.5-14.5); Segmented Neutrophils % 66.4 %; White Blood Count 3.8 K/mcL (4.3-11.1)
[2020-05-14 03:19] LABS: Magnesium 1.8 mg/dL (1.6-2.6); Phosphorous 2.5 mg/dL (2.7-4.5)
[2020-05-14 03:22] LABS: Alanine Aminotransferase 14 Units/L (7-52); Albumin 2.8 g/dL (3.5-5.7); Albumin/Globulin Ratio 0.7 (1.1-2.2); Alkaline Phosphatase 75 Units/L (34-104); Aspartate Amino Transferase 25 Units/L (13-39); BUN/Creatinine Ratio 11 (6-26); Bilirubin,Total 1.3 mg/dL (0.3-1.0); Blood Urea Nitrogen 6 mg/dL (6-20); Calcium 8.7 mg/dL (8.6-10.3); Carbon Dioxide 28 mEq/L (23-29); Chloride 102 mEq/L (98-107); Glucose 158 mg/dL (70-105); Osmolality,Calculated 279 (280-300); Potassium 3.7 mEq/L (3.5-5.1); Sodium 134 mEq/L (136-145); Total Protein 6.8 g/dL (6.4-8.9); eGFR For African Americans > 60 (> 60); eGFR For Non-African Americans > 60 (> 60)
[2020-05-14] MEDS: Insulin LISPRO 300 UNITS/3 ML VIAL SQ SCH ×4 (08:07→22:36)
[2020-05-14] MEDS: Lactulose Oral Soln 20 GM/30 ML UDC PO SCH ×2 (08:13→22:07)
[2020-05-14] MEDS: Furosemide 40 MG/4 ML VIAL IVP SCH (11:52)
[2020-05-14] MEDS: cefTRIAXone 2,000 MG in Water for inj. (sterile) 20 ML IVP SCH (14:20)
[2020-05-14] MEDS: risperiDONE 1 MG TABLET PO SCH (22:07)
[2020-05-14] MEDS: Insulin DETEMIR 100 UNIT/ML X5UNITS SQ SCH (22:12)
[2020-05-15 07:01] LABS: Basophils % 0.5 %; Hemoglobin 11.5 g/dL (12.9-16.9)
[2020-05-15 07:03] LABS: Eosinophils # 0.2 K/mcL (0.0-0.6); Eosinophils % 4.2 %; Hematocrit 36.2 % (37.5-50.1); Immature Granulocytes % 0.3 % (0-4); Immature Platelets 5.3 % (1.1-6.1); Lymphocytes # 0.6 K/mcL (0.6-4.6); Lymphocytes % 16.7 %; Mean Corpuscular HGB Conc 31.8 g/dL (31.6-35.5); Mean Corpuscular Hemoglobin 30.2 pg (28.0-33.3); Mean Platelet Volume 10.8 fL (9.4-12.4); Monocytes # 0.5 K/mcL (0.0-1.3); Monocytes % 11.9 %; Neutrophils # 2.5 K/mcL (1.6-8.9); Red Blood Count 3.81 M/mcL (4.19-5.50); Red Cell Distribution Width 15.9 % (11.5-14.5); Segmented Neutrophils % 66.4 %; White Blood Count 3.8 K/mcL (4.3-11.1)
[2020-05-15 07:04] LABS: Platelet Count 78 K/mcL (140-400)
[2020-05-15 07:20] LABS: Alanine Aminotransferase 13 Units/L (7-52); Albumin/Globulin Ratio 0.7 (1.1-2.2); Alkaline Phosphatase 77 Units/L (34-104); Aspartate Amino Transferase 25 Units/L (13-39); BUN/Creatinine Ratio 11 (6-26); Bilirubin,Total 1.3 mg/dL (0.3-1.0); Blood Urea Nitrogen 7 mg/dL (6-20); Calcium 8.2 mg/dL (8.6-10.3); Carbon Dioxide 27 mEq/L (23-29); Chloride 102 mEq/L (98-107); Globulin 4.3 g/dL (2.4-3.5); Glucose 122 mg/dL (70-105); Osmolality,Calculated 279 (280-300); Potassium 3.4 mEq/L (3.5-5.1); Sodium 135 mEq/L (136-145); Total Protein 7.3 g/dL (6.4-8.9); eGFR For African Americans > 60 (> 60); eGFR For Non-African Americans > 60 (> 60)
[2020-05-15] MEDS: Insulin LISPRO 300 UNITS/3 ML VIAL SQ SCH ×4 (08:55→20:10)
[2020-05-15] MEDS: Venlafaxine XR (24 HR) 150 MG CAP.ER.24H PO SCH (08:59)
[2020-05-15] MEDS: Lactulose Oral Soln 20 GM/30 ML UDC PO SCH ×2 (08:59→20:17)
[2020-05-15] MEDS: Furosemide 40 MG/4 ML VIAL IVP SCH (09:00)
[2020-05-15 14:27] LABS: Fluid Source for Triglycerides PERITONEAL FL
[2020-05-15 17:11] LABS: Triglycerides,Body Fluid 24 mg/dL
[2020-05-15] MEDS ORDERED: Furosemide 40 MG/4 ML VIAL IVP ONE (18:00)
[2020-05-15] MEDS: risperiDONE 1 MG TABLET PO SCH (20:17)
[2020-05-15] MEDS: Insulin DETEMIR 100 UNIT/ML X5UNITS SQ SCH (20:17)
[2020-05-15] MEDS ORDERED: Ketorolac 15 MG/ML VIAL IVP ONE (20:33)
[2020-05-16 02:21] LABS: BUN/Creatinine Ratio 12 (6-26); Blood Urea Nitrogen 8 mg/dL (6-20); Calcium 8.5 mg/dL (8.6-10.3); Carbon Dioxide 28 mEq/L (23-29); Chloride 100 mEq/L (98-107); Chol/HDL Ratio 6.3 (0-4.9); Cholesterol 144 mg/dL (< 200); Glucose 117 mg/dL (70-105); HDL Cholesterol 23 mg/dL (40-59); LDL Cholesterol,Calculated 100 mg/dL (< 100); Magnesium 1.8 mg/dL (1.6-2.6); Osmolality,Calculated 275 (280-300); Potassium 3.4 mEq/L (3.5-5.1); Sodium 133 mEq/L (136-145); Triglycerides 104 mg/dL (< 150); eGFR For African Americans > 60 (> 60); eGFR For Non-African Americans > 60 (> 60)
[2020-05-16 05:14] LABS: Fluid Source for Albumin ASCITES
[2020-05-16] MEDS: Insulin LISPRO 300 UNITS/3 ML VIAL SQ SCH ×4 (07:52→21:13)
[2020-05-16] MEDS: Magnesium Oxide 400 MG TABLET PO SCH (09:35)
[2020-05-16] MEDS: Furosemide 40 MG/4 ML VIAL IVP SCH (09:35)
[2020-05-16] MEDS: Venlafaxine XR (24 HR) 150 MG CAP.ER.24H PO SCH (09:36)
[2020-05-16] MEDS: Lactulose Oral Soln 20 GM/30 ML UDC PO SCH ×2 (09:36→21:13)
[2020-05-16] MEDS ORDERED: Furosemide 40 MG/4 ML VIAL IVP ONE (18:00)
[2020-05-16] MEDS: risperiDONE 1 MG TABLET PO SCH (21:13)
[2020-05-16] MEDS: Insulin DETEMIR 100 UNIT/ML X5UNITS SQ SCH (21:14)
[2020-05-17 02:15] LABS: BUN/Creatinine Ratio 15 (6-26); Blood Urea Nitrogen 11 mg/dL (6-20); Calcium 8.7 mg/dL (8.6-10.3); Carbon Dioxide 28 mEq/L (23-29); Chloride 99 mEq/L (98-107); Glucose 158 mg/dL (70-105); Magnesium 1.9 mg/dL (1.6-2.6); Osmolality,Calculated 279 (280-300); Potassium 3.6 mEq/L (3.5-5.1); Sodium 133 mEq/L (136-145); eGFR For African Americans > 60 (> 60); eGFR For Non-African Americans > 60 (> 60)
[2020-05-17 07:46] VITALS: BP 129/77
[2020-05-17] MEDS: Venlafaxine XR (24 HR) 150 MG CAP.ER.24H PO SCH (08:05)
[2020-05-17] MEDS: Magnesium Oxide 400 MG TABLET PO SCH (08:05)
[2020-05-17] MEDS: Lactulose Oral Soln 20 GM/30 ML UDC PO SCH (08:06)
[2020-05-17] MEDS: Furosemide 40 MG/4 ML VIAL IVP SCH (08:06)
[2020-05-17] MEDS: Insulin LISPRO 300 UNITS/3 ML VIAL SQ SCH (08:08)
== END 2020-05-17 11:12 | disposition home or self-care (01) | DRG 432 ==
LOC: 3ANU → SUATTDRO 02:50
PROVIDERS: ADMIT Student in an Organized Health Care Education/Training Program; ATTEND Student in an Organized Health Care Education/Training Program